=== PATIENT | female | born 1950 | race African-American/Black ===

== ENCOUNTER 2016-06-27 20:54 | Inpatient (IN) | payer MEDICAID ==
[2016-06-27] MEDS ORDERED: NS 0.9% 1000 ML* 1,000 ML IV ONE ×2 (21:23→21:37)
--- NOTE | 2016-06-27 21:34 | ED ---
Naveed Wei Anna, scribed for Abdi Katz MD on 06/27/16 at 2109 . GI/ HPI - HPI Summary HPI Summary: Patient is a 66 y/o female BIBA to [facility] presenting with gradual onset of constant flulike symptoms that began two days ago. EMS reports she experienced one episode of emesis and at least one episode of incontinence earlier today. Her BP upon arrival of EMS was 70/30. It has increased since then and was in the low 90s during transit. Per Ems, her sugar was high. The patient has not been eating or drinking for two days. Her history is significant for DM. - History of Current Complaint Stated Complaint: HIGH BLOOD SUGAR - Allergy/Home Medications Allergies/Adverse Reactions: Allergies Allergy/AdvReac Type Severity Reaction Status Date / Time BLAYNE Inhibitors Allergy Severe Swelling Verified 06/27/16 22:47 Of Face,Lips,& Throat PMH/Surg Hx/FS Hx/Imm Hx Endocrine/Hematology History: Reports: Hx Diabetes Cardiovascular History: Reports: Hx Hypercholesterolemia, Hx Hypertension Respiratory History: Reports: Hx Asthma, Other Respiratory Problems/Disorders - COPD Sensory History: Denies: Hx Contacts or Glasses Opthamlomology History: Denies: Hx Contacts or Glasses - Surgical History Surgery Procedure, Year, and Place: ovarian mass excision Infectious Disease History: Denies: Traveled Outside the [place] in Last 30 Days - Family History Known Family History: Positive: Diabetes - Social History Alcohol Use: Daily Alcohol Amount: 1 glass per night Substance Use Type: Reports: None Smoking Status (MU): Never Smoked Tobacco Review of Systems Positive: Vomiting Positive: incontinence All Other Systems Reviewed And Are Negative: Yes Physical Exam Triage Information Reviewed: Yes Vital Signs On Initial Exam: Initial Vitals Temp Pulse Resp BP Pulse Ox 97.6 F 75 17 103/66 100 06/27/16 21:05 06/27/16 21:05 06/27/16 21:05 06/27/16 21:05 06/27/16 21:05 Vital Signs Reviewed: Yes Appearance: Positive: No Pain Distress, Ill-Appearing, Obese Skin: Positive: Warm, Dry Eyes: Positive: OSIRIS ENT: Positive: Hearing grossly normal Neck: Positive: Supple Respiratory/Lung Sounds: Positive: Clear to Auscultation, Breath Sounds Present Cardiovascular: Positive: RRR Abdomen Description: Positive: Nontender, Soft Bowel Sounds: Positive: Present Musculoskeletal: Positive: Strength/ROM Intact Neurological: Positive: Sensory/Motor Intact Diagnostics - Vital Signs Vital Signs Temp Pulse Resp BP Pulse Ox 06/27/16 21:20 95 17 103/66 82 06/27/16 21:19 19 06/27/16 21:05 97.6 F 75 17 103/66 100 - Laboratory Result Diagrams: 06/27/16 21:25 06/27/16 21:25 Lab Statement: Any lab studies that have been ordered have been reviewed, and results considered in the medical decision making process. - EKG 2152 Cardiac Rate: NL - 71 bpm EKG Rhythm: Sinus Rhythm EKG Interpretation: Nonspecific T abnormalities GIGU Course/Dx - Course Assessment/Plan: Patient is a 66 y/o female BIBA to [facility] presenting with gradual onset of constant flulike symptoms that began two days ago. Labs reveal carbon dioxide level of 11, lactic acid level of 6, and C-reactive protein level of 17.78. Arterial blood pH was 7.17. Hx of diabetes. Discussed patient care with Dr. Marie, who accepts the pt for admission. Pt and family are agreeable with this plan. - Diagnoses Provider Diagnoses: DKA (diabetic ketoacidoses) - Physician Notifications Discussed Care Of Patient With: Dr. Marie (hospitalist) at 22:10. Agrees to accept patient. Instructed by Provider To: Admit As Inpatient - Critical Care Time Critical Care Time: 30-74 min Discharge - Discharge Plan Condition: Fair Disposition: ADMITTED TO [facility] The documentation as recorded by the Naveed arias Anna accurately reflects the service I personally performed and the decisions made by , Abdi Katz MD.
[2016-06-27 21:42] LABS: Hematocrit 43 % (35-47); Hemoglobin 14.1 g/dl (12.0-16.0); Mean Corpuscular HGB Conc 33 g/dl (31-36); Mean Corpuscular Hemoglobin 30 pg (27-31); Mean Corpuscular Volume 93 fL (80-97); Mean Platelet Volume 11 um3 (7.4-10.4); Red Blood Count 4.64 10^6/ul (4.0-5.4); Red Cell Distribution Width 15 % (10.5-15); White Blood Count 9.9 10^3/ul (3.5-10.8)
[2016-06-27 21:54] LABS: Albumin 3.8 g/dL (3.2-5.2); BUN/Creatinine Ratio 17.4 (8-20); C Reactive Protein 17.78 mg/L (< 5.00); Calcium 8.6 mg/dL (8.6-10.3); EGFR African American 12.9 (>60); Globulin 4.3 g/dL (2-4); Potassium 3.5 mmol/L (3.5-5.0); Total Bilirubin 0.6 mg/dL (0.2-1.0); Total Protein 8.1 g/dL (6.4-8.9)
[2016-06-27] MEDS ORDERED: Insulin REGULAR(*) 1 UNITS UNIT IV ONE (21:59)
[2016-06-27] MEDS ORDERED: Insulin REGULAR(*) 100 UNITS in NS 0.9% 100 ML* 100 ML IVPB ONE (21:59)
[2016-06-27 23:14] LABS: PCO2 Arterial 23 mmHg (35-45)
[2016-06-27 23:46] LABS: Magnesium 3.1 mg/dL (1.9-2.7)
[2016-06-28] MEDS ORDERED: Albuterol HFA INHALER* 8 gm MDI INH PRN (00:34)
[2016-06-28] MEDS ORDERED: Insulin REGULAR(*) 100 UNITS in NS 0.9% 100 ML* 100 ML IV SCH ×4 (01:00→17:00)
[2016-06-28] MEDS ORDERED: NS 0.9% w/ 20 Meq KCL 1000 ML* 1,000 ML IV SCH (01:00)
[2016-06-28 02:06] LABS: BUN/Creatinine Ratio 18.3 (8-20); Blood Urea Nitrogen 78 mg/dL (6-24); Calcium 8.5 mg/dL (8.6-10.3); Chloride 93 mmol/L (101-111); EGFR African American 13.5 (>60); EGFR Non-African American 10.5 (>60); Sodium 130 mmol/L (133-145)
[2016-06-28 02:09] LABS: CO2 Carbon Dioxide 11 mmol/L (22-32)
[2016-06-28 02:10] LABS: Glucose 653 mg/dL (70-100)
[2016-06-28] MEDS ORDERED: NS 0.9% w/ 40 Meq KCL 1000 ML* 1,000 ML IV SCH (03:00)
[2016-06-28 06:25] LABS: BUN/Creatinine Ratio 19.9 (8-20); Calcium 8.4 mg/dL (8.6-10.3); EGFR African American 15.8 (>60); EGFR Non-African American 12.3 (>60); Potassium 3.3 mmol/L (3.5-5.0)
[2016-06-28 06:38] LABS: Budding Yeast Present (Absent); Urine Bacteria 1+ (Absent); Urine Bilirubin Negative (Negative); Urine Glucose 3+(>=500 mg/dL) (Negative); Urine Nitrite Negative (Negative)
[2016-06-28] MEDS: D5W 1/2 NS 40 Meq KCL 1000 ML* 1,000 ML IV SCH ×2 (07:05→11:41)
--- NOTE | 2016-06-28 08:48 | HP ---
HISTORY AND PHYSICAL: DATE OF ADMISSION: 06/27/16 CHIEF COMPLAINT: Weakness and lethargy. HISTORY OF PRESENT ILLNESS: The patient is a 66-year-old woman who apparently has had diarrhea for several days. She states this started a day or two before that. She also notes that her doctor instructed her to stop taking her diabetic medications because she was under control. It is unclear for the patient because she is lethargic how long this has been. She also had some nausea and vomiting. She had no chest pain and no shortness of breath. The patient was brought in because of increased weakness and lethargy. In the ED, the patient was evaluated and found to be acidotic with combined lactic acidosis and diabetic ketoacidosis. She also was found to be significantly hyperglycemic with a blood sugar of 818. PAST MEDICAL HISTORY: Significant for type 2 diabetes, heart failure, atrial fibrillation, COPD, SVT and hypertension. PAST SURGICAL HISTORY: Significant for ovarian mass excision. ALLERGIES/ADVERSE REACTION: BLAYNE INHIBITORS with angioedema. FAMILY HISTORY: Mother had a CVA. Father of old age. SOCIAL HISTORY: No tobacco, no alcohol, no recreational drug use. She is not working. She is a . She has 8 children. Her healthcare proxy is her son Maximiliano. CURRENT MEDICATIONS: 1. Advair Diskus 1 puff twice daily. 2. Flovent Diskus 250 one puff twice daily. 3. Atenolol/chlorthalidone 50/25 one tablet daily. 4. Albuterol 2 puffs every 6 hours as needed. 5. Amlodipine 10 mg daily. 6. Xarelto 15 mg daily. 7. MiraLAX 17 g daily. 8. Aspirin 81 mg daily. REVIEW OF SYSTEMS: A 14-point review of systems was completed with the patient as best as could be possible with her lethargy. All pertinent positives and negatives are in the history of present illness otherwise is negative. PHYSICAL EXAMINATION GENERAL: A pleasant woman, lying in bed, in no acute distress. VITAL SIGNS: Her heart rate is 71 beats per minute, respiratory rate 17 breaths per minute, pulse oxygenation 98%, blood pressure 92/62, temperature 97.8 degrees. HEENT: Normocephalic, atraumatic. Exophthalmos. NECK: Supple. No JVD, bruits, palpable thyroid. CHEST: Diminished breath sounds, but clear to auscultation. CARDIOVASCULAR: S1, S2 appreciated. ABDOMEN: Positive bowel sounds in all 4 quadrants. Soft, nontender, nondistended. EXTREMITIES: No cyanosis, clubbing. She has got bilateral edema. NEURO: Alert and oriented x3 when awoken. Moves all extremities. SKIN: No distinct rashes. LABORATORY DATA: Sodium 130, potassium 3.5, chloride 87, CO2 11, BUN 77, creatinine 4.43, glucose is 818. Her white count is 9.9, hemoglobin 14.1, hematocrit 43, platelets 198. ABG; pH 7.17, pCO2 23, pO2 95. ASSESSMENT AND PLAN: 1. Diabetic ketoacidosis likely from diarrhea and volume depletion associated with her acute kidney injury. We will aggressively rehydrate the patient with normal saline with 40 mEq of K, check BMPs every 4 hours, place her on insulin drip. Fingersticks q.1 hour. After glucose drops below 200, we will change to D5 half- normal saline with 20 of K and halve the dosage of the insulin drip. 2. Acute kidney injury. I suspect this will improve dramatically with IV hydration and we will monitor. 3. Hypertension. Actually somewhat hypotensive. Continue medications, but hold if hypotensive. 4. Atrial fibrillation. Heart rate seems adequately controlled. Continue Xarelto. 5. Chronic obstructive pulmonary disease. Stable. Continue current regimen. 6. FEN: NPO. 7. DVT prophylaxis. She is on Xarelto. 8. The patient is a full code. TIME SPENT: Over 75 minutes was spent on this H and P, more than 40 minutes was spent in direct [id number] contact with the patient in evaluation, physical exam, counseling, and coordination of care. CC: Toyin Baron MD * [id number]/[facility] [place]: [id number] MTDD
[2016-06-28] MEDS ORDERED: Chlorthalidone TAB* 50 MG PO SCH (09:00)
[2016-06-28] MEDS ORDERED: amLODIPine TAB* 5 MG PO SCH (09:00)
[2016-06-28] MEDS ORDERED: Fluticasone DISKUS 250 MCG(NF) 1 PUFF DISKUS INH SCH (09:00)
[2016-06-28] MEDS ORDERED: Atenolol TAB* 50 MG PO SCH (09:00)
[2016-06-28] MEDS ORDERED: Rivaroxaban TAB(*) 15 MG PO SCH (09:00)
[2016-06-28 10:25] LABS: BUN/Creatinine Ratio 20.2 (8-20); Blood Urea Nitrogen 71 mg/dL (6-24); CO2 Carbon Dioxide 17 mmol/L (22-32); Calcium 8.3 mg/dL (8.6-10.3); Chloride 108 mmol/L (101-111); EGFR African American 16.9 (>60); EGFR Non-African American 13.1 (>60); Glucose 286 mg/dL (70-100); Sodium 139 mmol/L (133-145)
--- NOTE | 2016-06-28 10:38 | PN ---
Subjective Date of Service: 06/28/16 Interval History: Remains lethargic but easy to arouse and is AOx3 Has no complaints Objective Active Medications: Albuterol (Ventolin Hfa Inhaler*) 2 puff INH Q6H PRN PRN Reason: SOB/WHEEZING Aspirin (Aspirin Ec Low Dose*) 81 mg PO DAILY [facility] Potassium Chloride/Sodium Chloride (Ns 0.9% W/ 40 Meq Kcl 1000 Ml*) 1,000 mls @ 250 mls/hr IV PER RATE [facility] Last Admin: 06/28/16 03:30 Dose: 250 mls/hr Potassium Chloride/Dextrose (D5w 1/2 Ns 40 Meq Kcl 1000 Ml*) 1,000 mls @ 200 mls/hr IV PER RATE [facility] Last Admin: 06/28/16 07:05 Dose: 200 mls/hr Insulin Human Regular 100 (units/ Sodium Chloride) 100 mls @ 5.99 mls/hr IV .( INITIAL RATE) [facility] PRN Reason: 0.05 UNITS/KG/HR Lactated Ringer's (Lactated Ringers 1000 Ml Bag*) 1,000 mls @ 200 mls/hr IV PER RATE [facility] Stop: 06/29/16 15:59 Mometasone Furoate/Formoterol Fumar (Dulera 200/5 Mdi*) 2 puff INH BID [facility] Vital Signs 06/27/16 06/28/16 06/28/16 23:30 00:00 00:01 Temperature Pulse Rate 73 73 73 Respiratory 18 17 17 Rate Blood Pressure 99/51 108/74 (mmHg) O2 Sat by Pulse 99 99 99 Oximetry 06/28/16 06/28/16 06/28/16 00:30 01:00 01:19 Temperature Pulse Rate 72 77 Respiratory 17 20 19 Rate Blood Pressure 119/67 112/82 (mmHg) O2 Sat by Pulse 97 96 Oximetry 06/28/16 06/28/16 06/28/16 01:20 01:30 02:00 Temperature 97.6 F Pulse Rate 72 84 Respiratory 18 17 20 Rate Blood Pressure 99/46 108/72 (mmHg) O2 Sat by Pulse 100 99 Oximetry 06/28/16 06/28/16 06/28/16 03:00 03:03 03:30 Temperature Pulse Rate 74 70 Respiratory 18 13 12 Rate Blood Pressure 116/81 (mmHg) O2 Sat by Pulse 98 98 Oximetry 06/28/16 06/28/16 06/28/16 03:33 04:00 04:30 Temperature 97.1 F 97.6 F Pulse Rate 70 74 Respiratory 24 14 Rate Blood Pressure 110/73 93/66 (mmHg) O2 Sat by Pulse 98 99 Oximetry 06/28/16 06/28/16 06/28/16 05:00 05:30 06:00 Temperature 98.4 F 98.6 F 98.8 F Pulse Rate 73 73 81 Respiratory 15 18 11 Rate Blood Pressure 113/80 111/66 100/66 (mmHg) O2 Sat by Pulse 97 96 97 Oximetry 06/28/16 06/28/16 06/28/16 06:30 07:00 07:30 Temperature 98.7 F 98.7 F 98.8 F Pulse Rate 77 74 75 Respiratory 11 11 14 Rate Blood Pressure 110/70 92/66 99/59 (mmHg) O2 Sat by Pulse 99 99 97 Oximetry 06/28/16 06/28/16 06/28/16 07:43 08:00 09:00 Temperature 98.8 F 98.9 F Pulse Rate 71 70 Respiratory 15 16 15 Rate Blood Pressure 96/68 105/69 (mmHg) O2 Sat by Pulse 98 98 Oximetry 06/28/16 10:00 Temperature 98.9 F Pulse Rate 72 Respiratory 10 Rate Blood Pressure (mmHg) O2 Sat by Pulse 99 Oximetry Oxygen Devices in Use Now: Nasal Cannula Appearance: lying on side, NAD Ears/Nose/Mouth/Throat: Clear Oropharnyx, - - dry MM Respiratory: Symmetrical Chest Expansion and Respiratory Effort, Clear to Auscultation Cardiovascular: NL Sounds; No Murmurs; No JVD, RRR Abdominal: NL Sounds; No Tenderness; No Distention, No Hepatosplenomegaly Skin: No Rash or Ulcers Neurological: Alert and Oriented x 3, - - falls asleep quickly after talking Lines/Tubes/Other Access: Clean, Dry and Intact Limon Result Diagrams: 06/27/16 21:25 06/28/16 10:00 Microbiology and Other Data: Microbiology 06/28/16 01:40 Nasal Screen MRSA (PCR)(MILES) - Final Nasal Mrsa Negative Assess/Plan/Problems-Billing Assessment: 66 yo F h/o DM2, CHF, afib on xarelto, COPD, and HTN presents with increasing lethargy after several days of diarrhea found with DKA - Patient Problems (1) DKA (diabetic ketoacidoses) Comment: Reportedly stopped home medications. Pt does not confirm this AM Intercurrent diarrhea Continue insulin gtt until AG is closed and patient able top tolerate PO food c/w D51/2 NS with 40meq K 2 additional liter LR now BMP q4hrs - nect pending now (2) Atrial fibrillation Comment: Currently NSR D/c xarelto in setting of GERALD Will not start heparin unless reverts to afib (3) Acute kidney failure Comment: In setting of volume depletion from DKA c/w 1/2 NS and 2 additional liter LR now trend UOP Maintain limon (4) Hypertension Comment: Hold atenolol and chlorthalidone (5) COPD (chronic obstructive pulmonary disease) Comment: dulera and albuterol PRN (6) DVT prophylaxis Comment: hep SQ
[2016-06-28] MEDS: Mometasone/Formoter 200/5 MDI INH SCH ×2 (11:43→21:09)
[2016-06-28] MEDS: Heparin VIAL(*) 5000 UNITS/ML VIAL (FIVE THOUSAND) SUBCUT SCH ×2 (13:56→22:31)
[2016-06-28] MEDS: Aspirin EC Low Dose* 81 MG TAB.EC PO SCH (13:56)
[2016-06-28 14:29] LABS: BUN/Creatinine Ratio 20.2 (8-20); EGFR African American 19.3 (>60); Potassium 3.4 mmol/L (3.5-5.0)
[2016-06-28] MEDS ORDERED: Dextrose 50% Syringe 50 ML* 25 GM/50 ML SYRINGE IV PUSH PRN ×3 (15:54→23:25)
[2016-06-28] MEDS ORDERED: Insulin GLARGINE(*) 1 UNITS UNIT SUBCUT SCH (16:00)
[2016-06-28] MEDS ORDERED: Insulin GLARGINE(*) 1 UNITS UNIT ONE (16:18)
[2016-06-28] MEDS: Insulin LISPRO* 1 UNITS UNIT SUBCUT SCH ×2 (16:20→22:28)
[2016-06-28] MEDS ORDERED: D5W 1/2 NS 40 Meq KCL 1000 ML* 1,000 ML IV SCH (17:00)
[2016-06-28] MEDS ORDERED: Insulin LISPRO* 1 UNITS UNIT SUBCUT ONE ×2 (22:23→23:25)
[2016-06-29] MEDS ORDERED: Dextrose 50% Syringe 50 ML* 25 GM/50 ML SYRINGE IV PUSH PRN ×2 (00:17→09:36)
[2016-06-29] MEDS ORDERED: Insulin LISPRO* 1 UNITS UNIT SUBCUT ONE (00:17)
[2016-06-29 00:58] LABS: BUN/Creatinine Ratio 19.4 (8-20); Calcium 8.5 mg/dL (8.6-10.3); EGFR African American 21.5 (>60); EGFR Non-African American 16.7 (>60); Potassium 3.2 mmol/L (3.5-5.0)
--- NOTE | 2016-06-29 01:09 | PN ---
Progress Note - Progress Note Note: Paged for persistent hyperglycemia, not responding well to Lispro SQ and IVFs, repeat BMP showed patient back in DKA with anion gap acidosis. LR with 20 KCL and Insulin drip resumed.
[2016-06-29] MEDS ORDERED: Insulin REGULAR(*) 100 UNITS in NS 0.9% 100 ML* 100 ML IVPB SCH ×2 (02:00→10:30)
[2016-06-29 03:29] LABS: BUN/Creatinine Ratio 18.4 (8-20); Calcium 8.3 mg/dL (8.6-10.3); EGFR African American 24.3 (>60); EGFR Non-African American 18.9 (>60); Potassium 3.1 mmol/L (3.5-5.0)
[2016-06-29] MEDS: D5W 1/2 NS KCl 20 Meq 1000 ML* 1,000 ML IV SCH ×2 (03:42→08:14)
[2016-06-29] MEDS ORDERED: Adenosine* 3 MG/ML VIAL IV PUSH ONE ×2 (05:05→23:19)
[2016-06-29] MEDS ORDERED: Adenosine* 3 MG/ML VIAL ONE ×3 (05:06→23:20)
[2016-06-29 05:25] LABS: Magnesium 2.6 mg/dL (1.9-2.7)
[2016-06-29] MEDS: KCL 10 MEQ/50 ML IVPREMIX* 10 MEQ/50 ML BAG IV SCH ×2 (05:37→08:18)
[2016-06-29] MEDS: Heparin VIAL(*) 5000 UNITS/ML VIAL (FIVE THOUSAND) SUBCUT SCH ×3 (05:37→21:27)
[2016-06-29 06:04] LABS: Hematocrit 31 % (35-47); Hemoglobin 10.5 g/dl (12.0-16.0); Mean Corpuscular HGB Conc 34 g/dl (31-36); Mean Corpuscular Hemoglobin 31 pg (27-31); Mean Corpuscular Volume 89 fL (80-97); Mean Platelet Volume 11 um3 (7.4-10.4); Red Blood Count 3.43 10^6/ul (4.0-5.4); Red Cell Distribution Width 15 % (10.5-15)
[2016-06-29 06:21] LABS: BUN/Creatinine Ratio 20.3 (8-20); Blood Urea Nitrogen 45 mg/dL (6-24); CO2 Carbon Dioxide 18 mmol/L (22-32); Chloride 111 mmol/L (101-111); EGFR African American 28.6 (>60); EGFR Non-African American 22.2 (>60); Glucose 105 mg/dL (70-100); Magnesium 2.3 mg/dL (1.9-2.7); Sodium 137 mmol/L (133-145)
[2016-06-29] MEDS ORDERED: Adenosine* 3 MG/ML VIAL IV PUSH PRN (07:23)
[2016-06-29] MEDS: Insulin LISPRO* 1 UNITS UNIT SUBCUT SCH ×7 (08:09→21:34)
[2016-06-29] MEDS: Mometasone/Formoter 200/5 MDI INH SCH ×2 (08:59→21:33)
[2016-06-29] MEDS ORDERED: Insulin GLARGINE(*) 1 UNITS UNIT SUBCUT SCH (10:00)
[2016-06-29] MEDS ORDERED: Potassium Chlor TAB* 20 MEQ TAB.ER PO ONE (10:03)
[2016-06-29] MEDS ORDERED: Insulin GLARGINE(*) 1 UNITS UNIT ONE (10:37)
[2016-06-29] MEDS: Atenolol TAB* 25 MG PO SCH ×2 (10:44→20:19)
[2016-06-29] MEDS: Aspirin EC Low Dose* 81 MG TAB.EC PO SCH (10:44)
[2016-06-29] MEDS ORDERED: D5W 1/2 NS KCl 20 Meq 1000 ML* 1,000 ML IV SCH (10:45)
[2016-06-29] MEDS ORDERED: Insulin LISPRO* 1 UNITS UNIT SUBCUT SCH ×2 (11:30)
[2016-06-29 14:57] LABS: Hematocrit 32 % (35-47); Hemoglobin 10.6 g/dl (12.0-16.0); Mean Corpuscular HGB Conc 34 g/dl (31-36); Mean Corpuscular Hemoglobin 30 pg (27-31); Mean Corpuscular Volume 89 fL (80-97); Mean Platelet Volume 10 um3 (7.4-10.4); Red Blood Count 3.54 10^6/ul (4.0-5.4); Red Cell Distribution Width 15 % (10.5-15); White Blood Count 6.5 10^3/ul (3.5-10.8)
[2016-06-29 14:58] LABS: Add Diff/Slide Review? Slide Review Added; Comments Flag Yes
[2016-06-29 15:17] LABS: BUN/Creatinine Ratio 16.4 (8-20); Calcium 8.6 mg/dL (8.6-10.3); EGFR African American 28.2 (>60); EGFR Non-African American 21.9 (>60); Potassium 3.6 mmol/L (3.5-5.0)
--- NOTE | 2016-06-29 18:28 | PN ---
Subjective Date of Service: 06/29/16 Interval History: Events from overnight reviewed AG opened and started back on insulin gtt with improvement and transition back to lantus this AM SVT to 160s o/n broke with adenosine Pt this AM without any complaint. Good appetite, no cough, no SOB Objective Active Medications: Albuterol (Ventolin Hfa Inhaler*) 2 puff INH Q6H PRN PRN Reason: SOB/WHEEZING Aspirin (Aspirin Ec Low Dose*) 81 mg PO DAILY [facility] Last Admin: 06/29/16 10:44 Dose: 81 mg Atenolol (Tenormin Tab*) 25 mg PO BID [facility] Last Admin: 06/29/16 10:44 Dose: 25 mg Dextrose (D50w Syringe 50 Ml*) 12.5 gm IV PUSH .FOR FS < 60 - SS PRN PRN Reason: FS < 60 Heparin Sodium (Porcine) (Heparin Vial(*)) 5,000 units SUBCUT Q8HR [facility] Last Admin: 06/29/16 13:19 Dose: 5,000 units Lactated Ringer's (Lactated Ringers 1000 Ml Bag*) 1,000 mls @ 100 mls/hr IV 1145 ONE Stop: 06/29/16 21:44 Last Admin: 06/29/16 11:56 Dose: 100 mls/hr Insulin Glargine (Lantus(*)) 50 units SUBCUT Q24H [facility] Last Admin: 06/29/16 10:45 Dose: 50 units Insulin Human Lispro (Humalog*) 0 units SUBCUT FS ACHS ICU [facility] PRN Reason: Protocol Last Admin: 06/29/16 14:21 Dose: 2 units Insulin Human Lispro (Humalog*) 0 units SUBCUT FS ACHS ICU [facility] PRN Reason: Protocol Last Admin: 06/29/16 13:19 Dose: 6 units Mometasone Furoate/Formoterol Fumar (Dulera 200/5 Mdi*) 2 puff INH BID [facility] Last Admin: 06/29/16 08:59 Dose: 2 puff Vital Signs 06/28/16 06/28/16 06/28/16 19:00 19:53 20:00 Temperature 99.4 F 98.6 F 99.5 F Pulse Rate 69 73 Respiratory 12 11 Rate Blood Pressure 113/68 128/74 (mmHg) O2 Sat by Pulse 100 100 Oximetry 06/28/16 06/28/16 06/28/16 21:00 21:10 22:00 Temperature 99.5 F 99.5 F Pulse Rate 70 67 71 Respiratory 18 12 12 Rate Blood Pressure 122/77 98/64 (mmHg) O2 Sat by Pulse 98 100 98 Oximetry 06/28/16 06/28/16 06/28/16 23:00 23:40 23:42 Temperature 99.6 F 99.6 F Pulse Rate 67 66 Respiratory 16 17 18 Rate Blood Pressure 101/56 (mmHg) O2 Sat by Pulse 98 97 Oximetry 06/29/16 06/29/16 06/29/16 00:00 00:01 01:00 Temperature 99.7 F 99.7 F 99.5 F Pulse Rate 68 68 70 Respiratory 17 16 16 Rate Blood Pressure 122/70 114/63 (mmHg) O2 Sat by Pulse 97 97 98 Oximetry 06/29/16 06/29/16 06/29/16 01:52 02:00 03:00 Temperature 99.3 F 99.3 F Pulse Rate 71 72 Respiratory 18 19 15 Rate Blood Pressure 115/68 105/62 (mmHg) O2 Sat by Pulse 96 97 Oximetry 06/29/16 06/29/16 06/29/16 03:48 03:56 04:00 Temperature 99.1 F 99.3 F Pulse Rate 71 Respiratory 19 15 Rate Blood Pressure 104/61 (mmHg) O2 Sat by Pulse 97 Oximetry 06/29/16 06/29/16 06/29/16 05:00 05:06 05:45 Temperature 99.2 F 99.2 F 99.2 F Pulse Rate 73 169 73 Respiratory 15 15 18 Rate Blood Pressure 107/62 80/60 116/65 (mmHg) O2 Sat by Pulse 97 97 95 Oximetry 06/29/16 06/29/16 06/29/16 05:50 06:00 07:00 Temperature 99.2 F 99.1 F Pulse Rate 73 75 Respiratory 12 19 18 Rate Blood Pressure 109/71 119/66 (mmHg) O2 Sat by Pulse 97 98 Oximetry 06/29/16 06/29/16 06/29/16 07:26 07:30 07:58 Temperature 99.1 F 99.2 F 99.1 F Pulse Rate 160 85 Respiratory 18 16 Rate Blood Pressure 89/73 114/72 (mmHg) O2 Sat by Pulse 97 99 Oximetry 06/29/16 06/29/16 06/29/16 08:00 09:00 10:00 Temperature 99.0 F 98.8 F 98.9 F Pulse Rate 75 67 67 Respiratory 17 17 17 Rate Blood Pressure 121/88 118/63 96/62 (mmHg) O2 Sat by Pulse 97 96 97 Oximetry 06/29/16 06/29/16 06/29/16 11:00 11:54 12:00 Temperature 99.0 F 99.2 F 99.3 F Pulse Rate 70 68 Respiratory 16 15 Rate Blood Pressure 98/62 107/91 (mmHg) O2 Sat by Pulse 99 98 Oximetry 06/29/16 06/29/16 06/29/16 13:00 14:00 15:00 Temperature 99.2 F 99.3 F 99.5 F Pulse Rate 66 69 68 Respiratory 19 18 17 Rate Blood Pressure 119/65 112/71 111/64 (mmHg) O2 Sat by Pulse 96 98 98 Oximetry 06/29/16 06/29/16 16:00 17:00 Temperature 99.5 F 99.5 F Pulse Rate 67 66 Respiratory 18 21 Rate Blood Pressure 109/67 115/69 (mmHg) O2 Sat by Pulse 98 96 Oximetry Oxygen Devices in Use Now: Nasal Cannula Appearance: NAD Eyes: No Scleral Icterus, PERRLA Ears/Nose/Mouth/Throat: Clear Oropharnyx, Mucous Membranes Moist Neck: NL Appearance and Movements; NL JVP, Trachea Midline Respiratory: Symmetrical Chest Expansion and Respiratory Effort, Clear to Auscultation Cardiovascular: RRR Abdominal: NL Sounds; No Tenderness; No Distention, No Hepatosplenomegaly Lymphatic: No Cervical Adenopathy Extremities: No Edema Neurological: Alert and Oriented x 3 Result Diagrams: 06/29/16 14:45 06/29/16 14:45 Microbiology and Other Data: Microbiology 06/28/16 01:40 Nasal Screen MRSA (PCR)(MILES) - Final Nasal Mrsa Negative Assess/Plan/Problems-Billing Assessment: 66 yo F h/o DM2, CHF, afib on xarelto, COPD, and HTN presents with increasing lethargy after several days of diarrhea found with DKA - Patient Problems (1) DKA (diabetic ketoacidoses) Comment: Basal bolus insulin with sliding scale and carb counting 2 additional liter LR today Hba1c indicates uncontrolled dm2. Will need insulin on d/c (2) Atrial fibrillation Comment: complicated by SVT overnight restarted atenolol D/c xarelto in setting of GERALD Will not start heparin unless reverts to afib or persistent atrial arrhythmias (3) Acute kidney failure Comment: In setting of volume depletion from DKA maintain limon LR as above (4) Hypertension Comment: Hold chlorthalidone c/w atenolol (5) COPD (chronic obstructive pulmonary disease) Comment: dulera and albuterol PRN (6) DVT prophylaxis Comment: hep SQ
[2016-06-29] MEDS ORDERED: Metoprolol Tartrate IV* 1 MG/ML 5 ML VIAL ONE (22:55)
[2016-06-29] MEDS ORDERED: Metoprolol Tartrate IV* 1 MG/ML 5 ML VIAL IV PRN (22:55)
[2016-06-29] MEDS ORDERED: Diltiazem IV* 5 MG/ML 5 ML VIAL (for loading dose/IV Push) (25 MG) IV SLOW PU ONE (23:28)
[2016-06-29] MEDS ORDERED: Diltiazem IV VIAL* 125 MG/25 ML VIAL ONE (23:34)
[2016-06-29 23:48] LABS: BUN/Creatinine Ratio 15.6 (8-20); Calcium 8.5 mg/dL (8.6-10.3); EGFR African American 30.3 (>60); EGFR Non-African American 23.6 (>60); Magnesium 2.2 mg/dL (1.9-2.7); Potassium 3.2 mmol/L (3.5-5.0)
--- NOTE | 2016-06-29 23:56 | PN ---
Progress Note - Progress Note Note: Paged for SVT - Patient received lopressor 5 mg IV - minimal response, adenosine 6 mg, minimal response, diltiazem 20 mg IV - now down in 130's Sinus Tach. She does dip down into the 70-80s. BMP shows hypokalemia. Per RN did not eat any dinner. Will start LR with 20 KCL and IV KCl.
[2016-06-30] MEDS: KCL 20 MEQ/100 ML IVPREMIX* 20 MEQ/100 ML BAG IV SCH ×2 (00:12→02:40)
[2016-06-30 02:19] LABS: TSH (Thyroid Stimulating Horm) 1.33 mcIU/mL (0.34-5.60)
[2016-06-30] MEDS ORDERED: Metoprolol Tartrate IV* 1 MG/ML 5 ML VIAL IV ONE (02:44)
[2016-06-30] MEDS ORDERED: Diltiazem DRIP* 100 MG/100 ML ADDV.BAG IVPB SCH ×3 (04:00→08:25)
[2016-06-30] MEDS ORDERED: Heparin DRIP 25,000 UNITS(*) 25,000 UNITS/500 ML BAG IV SCH (04:15)
[2016-06-30 04:39] LABS: Hematocrit 27 % (35-47); Hemoglobin 9.1 g/dl (12.0-16.0); Mean Corpuscular HGB Conc 34 g/dl (31-36); Mean Corpuscular Hemoglobin 30 pg (27-31); Mean Corpuscular Volume 89 fL (80-97); Mean Platelet Volume 10 um3 (7.4-10.4); Red Blood Count 3.01 10^6/ul (4.0-5.4); Red Cell Distribution Width 15 % (10.5-15); White Blood Count 7.6 10^3/ul (3.5-10.8)
[2016-06-30 04:50] LABS: BUN/Creatinine Ratio 14.6 (8-20); Calcium 8.5 mg/dL (8.6-10.3); EGFR African American 35.3 (>60); EGFR Non-African American 27.4 (>60); Potassium 5.1 mmol/L (3.5-5.0)
[2016-06-30] MEDS ORDERED: Heparin VIAL(*) 5000 UNITS/ML VIAL (FIVE THOUSAND) IV SCH (05:00)
[2016-06-30] MEDS ORDERED: Insulin LISPRO* 1 UNITS UNIT SUBCUT ONE (06:00)
[2016-06-30] MEDS: Atenolol TAB* 25 MG PO SCH ×2 (08:56→20:58)
[2016-06-30] MEDS: Aspirin EC Low Dose* 81 MG TAB.EC PO SCH (08:56)
[2016-06-30] MEDS: Mometasone/Formoter 200/5 MDI INH SCH ×2 (09:58→20:50)
[2016-06-30] MEDS: Insulin GLARGINE(*) 1 UNITS UNIT SUBCUT SCH (11:02)
[2016-06-30] MEDS ORDERED: Insulin LISPRO* 1 UNITS UNIT SUBCUT SCH (12:00)
--- NOTE | 2016-06-30 13:33 | RAD ---
INDICATION: Fever, evaluate for pneumonia. COMPARISON: Comparison is made with a prior chest x-ray study from September 22, 2013. TECHNIQUE: AP and lateral views of the chest were obtained. FINDINGS: The heart is within normal limits in size. Mediastinal and hilar contours appear within normal limits. The lungs are underinflated and clear. No pleural effusion is seen. IMPRESSION: NO EVIDENCE FOR ACUTE DISEASE.
[2016-06-30 14:45] LABS: Hematocrit 32 % (35-47); Hemoglobin 10.9 g/dl (12.0-16.0)
--- NOTE | 2016-06-30 14:55 | PN ---
Subjective Date of Service: 06/30/16 Interval History: Events from overnight reviewed. SVT overnight to 160. Received diltiazam bolus, toprol, the put on dilt drip with heparin gtt. HR fluctuating between 160s and 50s. Back in NSR this AM when seen and dilt gtt titrated off. Back into SVT this afternoon which broke to NSR with coughing Pt without other complaints Objective Active Medications: Albuterol (Ventolin Hfa Inhaler*) 2 puff INH Q6H PRN PRN Reason: SOB/WHEEZING Aspirin (Aspirin Ec Low Dose*) 81 mg PO DAILY [facility] Last Admin: 06/30/16 08:56 Dose: 81 mg Atenolol (Tenormin Tab*) 25 mg PO BID [facility] Last Admin: 06/30/16 08:56 Dose: 25 mg Dextrose (D50w Syringe 50 Ml*) 12.5 gm IV PUSH .FOR FS < 60 - SS PRN PRN Reason: FS < 60 Insulin Glargine (Lantus(*)) 60 units SUBCUT Q24H [facility] Last Admin: 06/30/16 11:02 Dose: 60 units Insulin Human Lispro (Humalog*) 0 units SUBCUT Q6HR [facility] PRN Reason: Protocol Last Admin: 06/30/16 11:56 Dose: 9 units Metoprolol Tartrate (Lopressor Iv*) 5 mg IV Q6H PRN PRN Reason: BLOOD PRESSURE Mometasone Furoate/Formoterol Fumar (Dulera 200/5 Mdi*) 2 puff INH BID [facility] Last Admin: 06/30/16 09:58 Dose: 2 puff Rivaroxaban (Xarelto(*)) 15 mg PO 1700 [facility] Vital Signs 06/29/16 06/29/16 06/29/16 15:00 16:00 17:00 Temperature 99.5 F 99.5 F 99.5 F Pulse Rate 68 67 66 Respiratory 17 18 21 Rate Blood Pressure 111/64 109/67 115/69 (mmHg) O2 Sat by Pulse 98 98 96 Oximetry 06/29/16 06/29/16 06/29/16 18:00 18:06 19:00 Temperature 99.6 F Pulse Rate 75 Respiratory 14 22 21 Rate Blood Pressure 123/76 131/106 (mmHg) O2 Sat by Pulse 98 Oximetry 06/29/16 06/29/1606/29/17 20:00 21:00 22:00 Temperature 99.7 F 99.7 F 99.7 F Pulse Rate 73 71 69 Respiratory 21 16 20 Rate Blood Pressure 128/88 127/81 124/68 (mmHg) O2 Sat by Pulse 97 96 96 Oximetry 06/29/16 06/29/16 06/29/16 22:09 23:00 23:28 Temperature 99.7 F 99.7 F 99.8 F Pulse Rate 70 147 139 Respiratory 21 17 18 Rate Blood Pressure 118/79 131/86 (mmHg) O2 Sat by Pulse 95 97 98 Oximetry 06/29/16 06/29/16 06/29/16 23:40 23:44 23:45 Temperature 99.9 F 99.9 F 99.9 F Pulse Rate 146 112 118 Respiratory 19 24 16 Rate Blood Pressure 89/71 91/46 82/53 (mmHg) O2 Sat by Pulse 96 95 95 Oximetry 06/29/16 06/30/16 06/30/16 23:49 00:00 00:01 Temperature 99.9 F 99.8 F 99.8 F Pulse Rate 133 131 133 Respiratory 18 18 20 Rate Blood Pressure 99/63 118/79 (mmHg) O2 Sat by Pulse 94 95 95 Oximetry 06/30/16 06/30/16 06/30/16 00:15 00:30 00:45 Temperature 99.9 F 99.9 F 99.9 F Pulse Rate 111 122 141 Respiratory 20 21 22 Rate Blood Pressure 145/120 96/63 99/68 (mmHg) O2 Sat by Pulse 95 95 94 Oximetry 06/30/16 06/30/16 06/30/16 01:00 01:03 01:15 Temperature 99.9 F 99.9 F 99.9 F Pulse Rate 141 140 140 Respiratory 19 18 17 Rate Blood Pressure 89/49 106/67 88/61 (mmHg) O2 Sat by Pulse 96 96 96 Oximetry 06/30/16 06/30/16 06/30/16 01:19 01:30 01:33 Temperature 99.9 F 99.9 F 99.9 F Pulse Rate 144 111 130 Respiratory 21 18 19 Rate Blood Pressure 93/45 88/65 88/72 (mmHg) O2 Sat by Pulse 96 95 96 Oximetry 06/30/16 06/30/16 06/30/16 01:45 02:00 02:15 Temperature 99.9 F 100.0 F 100.0 F Pulse Rate 107 144 146 Respiratory 15 20 21 Rate Blood Pressure 96/52 100/69 95/60 (mmHg) O2 Sat by Pulse 98 97 96 Oximetry 06/30/16 06/30/16 06/30/16 02:30 02:45 02:49 Temperature 100.0 F 100.0 F 100.0 F Pulse Rate 68 146 146 Respiratory 20 18 21 Rate Blood Pressure 116/86 73/31 78/58 (mmHg) O2 Sat by Pulse 98 97 97 Oximetry 06/30/16 06/30/16 06/30/16 02:56 03:00 03:02 Temperature 100.0 F 100.0 F Pulse Rate 98 147 Respiratory 14 22 Rate Blood Pressure 76/53 81/56 (mmHg) O2 Sat by Pulse 97 97 Oximetry 06/30/16 06/30/16 06/30/16 03:15 03:30 03:45 Temperature 100.0 F 99.9 F 99.9 F Pulse Rate 109 143 89 Respiratory 21 23 19 Rate Blood Pressure 122/70 85/56 73/58 (mmHg) O2 Sat by Pulse 98 97 99 Oximetry 06/30/16 06/30/16 06/30/16 03:48 03:56 03:59 Temperature 99.8 F 99.8 F 99.9 F Pulse Rate 144 145 84 Respiratory 21 20 17 Rate Blood Pressure 72/61 85/71 (mmHg) O2 Sat by Pulse 96 97 97 Oximetry 06/30/16 06/30/16 06/30/16 04:00 04:15 04:30 Temperature 99.8 F 99.9 F Pulse Rate 145 146 Respiratory 18 18 Rate Blood Pressure 98/65 145/85 108/81 (mmHg) O2 Sat by Pulse 98 97 Oximetry 06/30/16 06/30/16 06/30/16 04:45 05:00 05:15 Temperature 99.9 F 99.9 F 100.0 F Pulse Rate 145 129 145 Respiratory 18 16 20 Rate Blood Pressure 89/62 101/83 90/57 (mmHg) O2 Sat by Pulse 96 97 97 Oximetry 06/30/16 06/30/16 06/30/16 05:30 05:33 05:45 Temperature 100.0 F 100.0 F 100.0 F Pulse Rate 147 146 103 Respiratory 16 20 19 Rate Blood Pressure 84/69 96/71 92/69 (mmHg) O2 Sat by Pulse 98 96 96 Oximetry 06/30/16 06/30/16 06/30/16 06:00 06:01 06:15 Temperature 100.0 F 100.0 F 100.1 F Pulse Rate 146 146 144 Respiratory 13 17 19 Rate Blood Pressure 80/65 96/67 89/57 (mmHg) O2 Sat by Pulse 96 96 96 Oximetry 06/30/16 06/30/16 06/30/16 06:30 06:45 07:00 Temperature 100.0 F 100.1 F 100.1 F Pulse Rate 144 135 144 Respiratory 15 16 16 Rate Blood Pressure 95/78 99/72 111/90 (mmHg) O2 Sat by Pulse 96 99 98 Oximetry 06/30/16 06/30/16 06/30/16 07:15 07:45 07:59 Temperature 100.1 F 100.1 F 100.2 F Pulse Rate 65 103 74 Respiratory 15 21 20 Rate Blood Pressure 111/69 104/68 (mmHg) O2 Sat by Pulse 100 99 99 Oximetry 06/30/16 06/30/16 06/30/16 08:00 08:08 08:15 Temperature 100.2 F 100.3 F 100.4 F Pulse Rate 74 77 74 Respiratory 20 14 21 Rate Blood Pressure 74/47 73/48 87/67 (mmHg) O2 Sat by Pulse 98 99 99 Oximetry 06/30/16 06/30/16 06/30/16 08:30 08:45 09:00 Temperature 100.2 F 99.7 F Pulse Rate 66 68 Respiratory 18 18 20 Rate Blood Pressure 97/70 104/70 103/72 (mmHg) O2 Sat by Pulse 97 99 Oximetry 06/30/16 06/30/16 06/30/16 09:15 09:30 09:45 Temperature 99.4 F 99.4 F 99.3 F Pulse Rate 64 67 66 Respiratory 21 20 14 Rate Blood Pressure 104/84 103/73 105/62 (mmHg) O2 Sat by Pulse 97 97 97 Oximetry 06/30/16 06/30/16 06/30/16 10:00 10:15 10:30 Temperature 99.3 F 99.3 F 99.2 F Pulse Rate 64 67 63 Respiratory 15 19 19 Rate Blood Pressure 96/66 98/61 100/65 (mmHg) O2 Sat by Pulse 98 97 96 Oximetry 06/30/16 06/30/16 06/30/16 10:45 11:00 11:15 Temperature 99.2 F 99.2 F 99.3 F Pulse Rate 63 62 61 Respiratory 18 18 19 Rate Blood Pressure 107/74 114/62 101/67 (mmHg) O2 Sat by Pulse 97 95 96 Oximetry 06/30/16 06/30/16 06/30/16 11:30 11:38 11:45 Temperature 99.3 F 99.3 F Pulse Rate 61 65 Respiratory 19 20 17 Rate Blood Pressure 94/60 93/59 (mmHg) O2 Sat by Pulse 97 93 Oximetry 06/30/16 06/30/16 06/30/16 12:00 12:15 12:18 Temperature 99.3 F 99.3 F 99.3 F Pulse Rate 62 61 62 Respiratory 18 21 20 Rate Blood Pressure 91/64 78/48 85/56 (mmHg) O2 Sat by Pulse 96 96 96 Oximetry 06/30/16 06/30/16 06/30/16 12:22 12:30 12:45 Temperature 99.3 F 99.3 F 99.3 F Pulse Rate 63 61 63 Respiratory 20 18 18 Rate Blood Pressure 99/61 106/75 101/72 (mmHg) O2 Sat by Pulse 96 97 96 Oximetry 06/30/16 06/30/16 06/30/16 13:00 13:15 13:30 Temperature 99.4 F 99.4 F 99.4 F Pulse Rate 65 66 58 Respiratory 17 17 20 Rate Blood Pressure 102/71 107/79 (mmHg) O2 Sat by Pulse 98 98 98 Oximetry 06/30/16 06/30/16 06/30/16 13:45 14:00 14:15 Temperature 99.5 F 99.5 F 99.5 F Pulse Rate 70 65 66 Respiratory 18 19 20 Rate Blood Pressure 111/75 (mmHg) O2 Sat by Pulse 98 96 98 Oximetry Oxygen Devices in Use Now: Nasal Cannula Appearance: NAD Eyes: No Scleral Icterus, PERRLA, - - left eye esotropia Ears/Nose/Mouth/Throat: Clear Oropharnyx, Mucous Membranes Moist Neck: NL Appearance and Movements; NL JVP, Trachea Midline Respiratory: Symmetrical Chest Expansion and Respiratory Effort, Clear to Auscultation Cardiovascular: RRR Abdominal: NL Sounds; No Tenderness; No Distention, No Hepatosplenomegaly Lymphatic: No Cervical Adenopathy Extremities: No Edema Neurological: Alert and Oriented x 3 Result Diagrams: 06/30/16 14:00 06/30/16 04:25 Microbiology and Other Data: Microbiology 06/28/16 01:40 Nasal Screen MRSA (PCR)([facility]IL[facility]) - Final Nasal Mrsa Negative Assess/Plan/Problems-Billing Assessment: 66 yo F h/o DM2, CHF, afib on xarelto, COPD, and HTN presents with increasing lethargy after several days of diarrhea found with DKA with stay c/b SVT and bradycarida on AV julianna blockers - Patient Problems (1) DKA (diabetic ketoacidoses) Comment: Basal bolus insulin with sliding scale and carb counting Insulin increased to 60unit 06/30/16 Hba1c indicates uncontrolled dm2. Will need insulin on d/c (2) Atrial fibrillation Comment: complicated by continued SVT and bradycardia while on AV julianna blockers. ?Sick sinus syndrome. Asked cardiology to consult and weigh in on best method for rate or rhythm control. Was previously on amiodarone. Placed Dr. Broussard's last note in chart. Unclear why this was discontinued. c/w atenolol Restart xarelto 25mg. heparin gtt stopped Metoprolol 5mg IV available for uncontrolled rate (3) Acute kidney failure Comment: In setting of volume depletion from DKA d/c limon Baseline per review from outpatient records - Cr 1.8 in 04/2016 (4) Hypertension Comment: Hold chlorthalidone c/w atenolol (5) COPD (chronic obstructive pulmonary disease) Comment: dulera and albuterol PRN (6) DVT prophylaxis Comment: hep SQ
[2016-06-30 14:59] LABS: BUN/Creatinine Ratio 12.7 (8-20); Calcium 8.3 mg/dL (8.6-10.3); EGFR African American 36.2 (>60); EGFR Non-African American 28.1 (>60); Potassium 3.3 mmol/L (3.5-5.0)
[2016-06-30] MEDS: Rivaroxaban TAB(*) 15 MG PO SCH (16:08)
[2016-06-30] MEDS: Insulin LISPRO* 1 UNITS UNIT SUBCUT SCH ×2 (17:15→21:01)
--- NOTE | 2016-06-30 17:58 | CONS ---
CARDIOLOGY CONSULTATION: DATE OF CONSULT: 06/30/16 INDICATION FOR CONSULTATION: Atrial tachycardia, atrial fibrillation. HISTORY OF PRESENT ILLNESS: The patient is a 66-year-old female with a history of diabetes, hypertension, and hyperlipidemia who was admitted to the hospital with diabetic ketoacidosis. The patient was off of her diabetic medications and was admitted to the hospital with ketoacidosis. She was brought to the emergency room and started on fluids in replenishment of her electrolytes. It was noted that she was having runs of atrial tachycardia/SVT/atrial fibrillation while she was in the emergency room. The patient does have a history of atrial arrhythmias. Since the patient has been in the hospital, she has been in and out of normal sinus rhythm and atrial fibrillation. Her atrial rhythm goes up to a heart rate of 190 beats per minute. In speaking with the patient, she has no symptoms associated with this. She denies any episodes of lightheadedness, dizziness, or syncope. The patient was seen by Dr. Lopez at the end of April for this abnormality. There were no medication changes at that time. PAST MEDICAL HISTORY: Significant for: 1. Hypertension. 2. Asthma. 3. Hyperlipidemia. 4. Diabetes. 5. Paroxysmal atrial fibrillation. 6. Chronic kidney disease. PAST SURGICAL HISTORY: 1. Tubal ligation. 2. Colonoscopy in 2000. OUTPATIENT MEDICATIONS: Include: 1. Albuterol inhaler. 2. Amlodipine 10 mg a day. 3. Aspirin 81 mg a day. 4. Atenolol/chlorthalidone 50/25 mg once a day. 5. Lipitor 20 mg a day. 6. Xarelto 15 mg a day. CURRENT MEDICATIONS: 1. Aspirin 81 mg a day. 2. Atenolol 25 mg b.i.d. 3. Insulin as directed. 4. Xarelto 15 mg a day. ALLERGIES: She is intolerant of LISINOPRIL. SOCIAL HISTORY: She denies tobacco or significant alcohol intake. She is not . She is retired. PHYSICAL EXAM: Height is 5 feet 9 inches, weight 288 pounds, temperature 99.7, heart rate 65, respiratory rate is 17, oxygen saturation 96% on 2 L, and blood pressure 120/81. Sclerae anicteric. Oropharynx is pink without erythema. Carotids are 2+ without bruits. JVD is normal. Thyroid is normal. Cardiac Exam: S1, S2 without any murmurs, rubs, or gallops. Lungs have decreased breath sounds. There is no rhonchi or wheezes. Abdomen is obese, soft, nontender, and nondistended with normoactive bowel sounds. Extremities show 2+ edema. She has 2+ pulses throughout. The patient is awake, alert, and oriented. She moves all 4 extremities equally. DIAGNOSTIC STUDIES/LAB DATA: The patient did have an echocardiogram in 2013. At that time, it was a technically limited study due to body habitus. Her ejection fraction was estimated at 50%. There was no obvious valvular abnormalities. IMPRESSION: This is a 66-year-old female who was admitted to the hospital with diabetic ketoacidosis who was noted to have episodes of atrial tachycardia, likely atrial fibrillation with rapid ventricular response. The patient's overall episodes of atrial tachycardia are relatively brief in duration. She seems to tolerate it well. She does not have any significant symptoms associated with it. Overall, her episodes have declined since being in the intensive care unit. For now, my recommendation is to stay on her atenolol. If she continues to have these runs of atrial tachycardia that are symptomatic, then I would consider starting amiodarone and have her follow up with Dr. Lopez as an outpatient. CC: Venkata Washington MD; Dr. Amadeo Lopez, Cardiology at [facility] * [id number]/[facility] #: [id number] [facility]
[2016-07-01] MEDS: Insulin LISPRO* 1 UNITS UNIT SUBCUT SCH ×6 (01:20→21:41)
[2016-07-01 06:55] LABS: Calcium 8.4 mg/dL (8.6-10.3); EGFR African American 35.7 (>60); EGFR Non-African American 27.8 (>60); Potassium 3.1 mmol/L (3.5-5.0)
[2016-07-01] MEDS ORDERED: Potassium Chlor TAB* 20 MEQ TAB.ER PO ONE (07:09)
[2016-07-01] MEDS: Aspirin EC Low Dose* 81 MG TAB.EC PO SCH (07:33)
[2016-07-01] MEDS: Atenolol TAB* 25 MG PO SCH ×2 (07:33→21:40)
[2016-07-01 08:18] LABS: Hematocrit 31 % (35-47); Hemoglobin 10.4 g/dl (12.0-16.0); Mean Corpuscular HGB Conc 33 g/dl (31-36); Mean Corpuscular Hemoglobin 30 pg (27-31); Mean Corpuscular Volume 90 fL (80-97); Mean Platelet Volume 11 um3 (7.4-10.4); Red Blood Count 3.47 10^6/ul (4.0-5.4); Red Cell Distribution Width 15 % (10.5-15)
[2016-07-01 08:19] LABS: Comments Flag Yes
[2016-07-01 08:21] LABS: Add Diff/Slide Review? Slide Review Added
[2016-07-01] MEDS: Mometasone/Formoter 200/5 MDI INH SCH ×2 (08:57→21:43)
[2016-07-01] MEDS: Insulin GLARGINE(*) 1 UNITS UNIT SUBCUT SCH (09:45)
[2016-07-01] MEDS: Rivaroxaban TAB(*) 15 MG PO SCH (17:06)
--- NOTE | 2016-07-01 17:13 | PN ---
Subjective Date of Service: 07/01/16 Interval History: Feels well today no cough, dysuria, CP/SOB Worked with PT and could only walk 20 fts Has tested FS gat home in the past but does need another glucometer Objective Active Medications: Albuterol (Ventolin Hfa Inhaler*) 2 puff INH Q6H PRN PRN Reason: SOB/WHEEZING Aspirin (Aspirin Ec Low Dose*) 81 mg PO DAILY [facility] Last Admin: 07/01/16 07:33 Dose: 81 mg Atenolol (Tenormin Tab*) 25 mg PO BID [facility] Last Admin: 07/01/16 07:33 Dose: 25 mg Dextrose (D50w Syringe 50 Ml*) 12.5 gm IV PUSH .FOR FS < 60 - SS PRN PRN Reason: FS < 60 Sodium Chloride (Ns 0.9% 1000 Ml*) 1,000 mls @ 150 mls/hr IV PER RATE [facility] Stop: 07/01/16 23:54 Insulin Glargine (Lantus(*)) 60 units SUBCUT Q24H [facility] Last Admin: 07/01/16 09:45 Dose: 60 units Insulin Glargine (Lantus(*)) 10 units SUBCUT Q24H [facility] Insulin Human Lispro (Humalog*) 0 units SUBCUT ACHS [facility] PRN Reason: Protocol Last Admin: 07/01/16 17:02 Dose: 9 units Metoprolol Tartrate (Lopressor Iv*) 5 mg IV Q6H PRN PRN Reason: BLOOD PRESSURE Mometasone Furoate/Formoterol Fumar (Dulera 200/5 Mdi*) 2 puff INH BID [facility] Last Admin: 07/01/16 08:57 Dose: 2 puff Rivaroxaban (Xarelto(*)) 15 mg PO 1700 [facility] Last Admin: 07/01/16 17:06 Dose: 15 mg Vital Signs 06/30/16 06/30/16 06/30/16 17:15 17:30 17:45 Temperature Pulse Rate 65 64 63 Respiratory 15 14 14 Rate Blood Pressure (mmHg) O2 Sat by Pulse 97 97 98 Oximetry 06/30/16 06/30/16 06/30/16 18:00 18:15 18:30 Temperature Pulse Rate 65 71 71 Respiratory 19 15 15 Rate Blood Pressure 109/73 (mmHg) O2 Sat by Pulse 98 99 99 Oximetry 06/30/16 06/30/16 06/30/16 18:45 19:00 19:02 Temperature Pulse Rate 72 Respiratory 16 22 19 Rate Blood Pressure 113/80 (mmHg) O2 Sat by Pulse 96 Oximetry 06/30/16 06/30/16 06/30/16 19:15 19:30 19:45 Temperature Pulse Rate 67 65 68 Respiratory 17 22 14 Rate Blood Pressure (mmHg) O2 Sat by Pulse 99 99 99 Oximetry 06/30/16 06/30/16 06/30/16 19:46 20:00 20:11 Temperature 98.9 F Pulse Rate 65 65 Respiratory 19 15 Rate Blood Pressure 128/75 (mmHg) O2 Sat by Pulse 98 100 Oximetry 06/30/16 06/30/16 06/30/16 20:15 20:30 20:45 Temperature Pulse Rate 65 64 62 Respiratory 15 18 17 Rate Blood Pressure (mmHg) O2 Sat by Pulse 100 98 100 Oximetry 06/30/16 06/30/16 06/30/16 21:00 21:15 21:30 Temperature Pulse Rate 64 63 64 Respiratory 16 19 19 Rate Blood Pressure 124/84 (mmHg) O2 Sat by Pulse 100 100 100 Oximetry 06/30/16 06/30/16 06/30/16 21:45 22:00 22:13 Temperature Pulse Rate 63 61 62 Respiratory 17 19 19 Rate Blood Pressure 125/75 (mmHg) O2 Sat by Pulse 100 98 97 Oximetry 06/30/16 06/30/16 06/30/16 22:15 22:30 22:45 Temperature Pulse Rate 62 60 61 Respiratory 19 20 13 Rate Blood Pressure (mmHg) O2 Sat by Pulse 97 96 100 Oximetry 06/30/16 06/30/16 06/30/16 23:00 23:15 23:30 Temperature Pulse Rate 65 63 63 Respiratory 16 13 14 Rate Blood Pressure 143/99 (mmHg) O2 Sat by Pulse 98 95 98 Oximetry 06/30/16 07/01/16 07/01/16 23:45 00:00 00:01 Temperature 98.1 F Pulse Rate 63 61 61 Respiratory 14 19 19 Rate Blood Pressure 90/60 (mmHg) O2 Sat by Pulse 99 97 97 Oximetry 07/01/16 07/01/16 07/01/16 00:15 00:30 00:45 Temperature Pulse Rate 61 60 61 Respiratory 19 18 15 Rate Blood Pressure (mmHg) O2 Sat by Pulse 96 96 98 Oximetry 07/01/16 07/01/16 07/01/16 01:00 01:15 01:30 Temperature Pulse Rate 61 58 59 Respiratory 14 19 20 Rate Blood Pressure 119/79 (mmHg) O2 Sat by Pulse 94 97 97 Oximetry 07/01/16 07/01/16 07/01/16 01:45 02:00 02:15 Temperature Pulse Rate 59 59 61 Respiratory 16 17 16 Rate Blood Pressure 105/69 (mmHg) O2 Sat by Pulse 97 97 99 Oximetry 07/01/16 07/01/16 07/01/16 02:30 02:45 03:00 Temperature Pulse Rate 59 60 60 Respiratory 18 17 13 Rate Blood Pressure 120/82 (mmHg) O2 Sat by Pulse 99 98 97 Oximetry 07/01/16 07/01/16 07/01/16 03:15 03:30 03:45 Temperature Pulse Rate 60 64 59 Respiratory 19 11 16 Rate Blood Pressure (mmHg) O2 Sat by Pulse 96 96 96 Oximetry 07/01/16 07/01/16 07/01/16 04:00 04:15 04:30 Temperature 99.2 F Pulse Rate 61 65 61 Respiratory 20 16 19 Rate Blood Pressure 113/67 (mmHg) O2 Sat by Pulse 96 97 96 Oximetry 07/01/16 07/01/16 07/01/16 04:45 05:00 05:15 Temperature Pulse Rate 62 60 59 Respiratory 13 18 18 Rate Blood Pressure 114/72 (mmHg) O2 Sat by Pulse 98 96 97 Oximetry 07/01/16 07/01/16 07/01/16 05:30 05:45 06:00 Temperature Pulse Rate 61 62 60 Respiratory 13 11 12 Rate Blood Pressure (mmHg) O2 Sat by Pulse 98 99 98 Oximetry 07/01/16 07/01/16 07/01/16 06:07 06:15 06:30 Temperature Pulse Rate 60 61 59 Respiratory 15 13 16 Rate Blood Pressure 125/87 (mmHg) O2 Sat by Pulse 98 98 97 Oximetry 07/01/16 07/01/16 07/01/16 06:45 07:00 07:15 Temperature Pulse Rate 61 59 59 Respiratory 15 16 17 Rate Blood Pressure 102/64 (mmHg) O2 Sat by Pulse 100 100 100 Oximetry 07/01/16 07/01/16 07/01/16 07:30 07:36 07:45 Temperature 97.9 F Pulse Rate 60 60 Respiratory 10 12 Rate Blood Pressure (mmHg) O2 Sat by Pulse 100 100 Oximetry 07/01/16 07/01/16 07/01/16 08:00 08:15 08:30 Temperature Pulse Rate 59 58 60 Respiratory 17 13 16 Rate Blood Pressure 117/79 (mmHg) O2 Sat by Pulse 100 100 99 Oximetry 07/01/16 07/01/16 07/01/16 08:45 09:00 09:15 Temperature Pulse Rate 63 61 68 Respiratory 11 12 19 Rate Blood Pressure 117/74 (mmHg) O2 Sat by Pulse 99 98 97 Oximetry 07/01/16 07/01/16 07/01/16 09:30 09:45 10:00 Temperature Pulse Rate 68 68 68 Respiratory 16 14 17 Rate Blood Pressure 87/69 (mmHg) O2 Sat by Pulse 98 97 97 Oximetry 07/01/16 07/01/16 07/01/16 10:12 10:15 10:30 Temperature Pulse Rate 70 69 66 Respiratory 17 16 15 Rate Blood Pressure 99/61 (mmHg) O2 Sat by Pulse 98 97 99 Oximetry 07/01/16 07/01/16 07/01/16 10:45 10:58 11:00 Temperature Pulse Rate 63 65 Respiratory 17 13 18 Rate Blood Pressure 101/74 (mmHg) O2 Sat by Pulse 100 100 Oximetry 07/01/16 07/01/16 07/01/16 11:15 11:28 11:29 Temperature 97.2 F Pulse Rate 65 Respiratory 17 18 Rate Blood Pressure (mmHg) O2 Sat by Pulse 99 Oximetry 07/01/16 07/01/16 07/01/16 11:30 11:45 12:00 Temperature Pulse Rate 65 65 65 Respiratory 12 17 13 Rate Blood Pressure 106/68 (mmHg) O2 Sat by Pulse 100 99 100 Oximetry 07/01/16 07/01/16 07/01/16 12:15 12:45 13:00 Temperature Pulse Rate 66 65 Respiratory 18 Rate Blood Pressure 102/77 (mmHg) O2 Sat by Pulse 100 99 Oximetry 07/01/16 07/01/16 07/01/16 13:15 13:30 13:56 Temperature Pulse Rate 66 68 Respiratory 18 Rate Blood Pressure (mmHg) O2 Sat by Pulse 100 100 Oximetry 07/01/16 07/01/16 07/01/16 14:00 14:15 14:30 Temperature Pulse Rate 70 73 72 Respiratory Rate Blood Pressure 110/75 (mmHg) O2 Sat by Pulse 100 98 99 Oximetry 07/01/16 07/01/16 07/01/16 14:45 15:00 15:15 Temperature Pulse Rate 73 73 Respiratory 18 Rate Blood Pressure 116/78 (mmHg) O2 Sat by Pulse 100 100 Oximetry 07/01/16 07/01/16 15:29 15:30 Temperature 98.8 F Pulse Rate 71 Respiratory Rate Blood Pressure (mmHg) O2 Sat by Pulse 100 Oximetry Oxygen Devices in Use Now: Nasal Cannula Appearance: obese, NAD Eyes: No Scleral Icterus, PERRLA, - - left exotropia Ears/Nose/Mouth/Throat: NL Teeth, Lips, Gums, Clear Oropharnyx, Mucous Membranes Moist Neck: NL Appearance and Movements; NL JVP, Trachea Midline Respiratory: Symmetrical Chest Expansion and Respiratory Effort, Clear to Auscultation Cardiovascular: NL Sounds; No Murmurs; No JVD, RRR Abdominal: NL Sounds; No Tenderness; No Distention, No Hepatosplenomegaly Lymphatic: No Cervical Adenopathy Extremities: No Edema Neurological: Alert and Oriented x 3 Result Diagrams: 07/01/16 05:50 07/01/16 05:50 Microbiology and Other Data: Microbiology 06/28/16 01:40 Nasal Screen MRSA (PCR)([facility]) - Final Nasal Mrsa Negative Assess/Plan/Problems-Billing Assessment: 66 yo F h/o DM2, CHF, afib on xarelto, COPD, and HTN presents with increasing lethargy after several days of diarrhea found with DKA with stay c/b SVT and bradycarida on AV julianna blockers - Patient Problems (1) DKA (diabetic ketoacidoses) Comment: Basal bolus insulin with sliding scale and carb counting Insulin lantus increased to 60unit 06/30/16 Added additional 10 units lantus evening 07/01 (total 70units/day dose) Hba1c indicates uncontrolled dm2. Will need insulin on d/c (2) Atrial fibrillation Comment: complicated by continued SVT and bradycardia while on AV julianna blockers. ?Sick sinus syndrome. Was previously on amiodarone. Placed Dr. Broussard's last note in chart. Unclear why this was discontinued. c/w atenolol Restart xarelto 25mg. heparin gtt stopped Metoprolol 5mg IV available for uncontrolled rate Appreciate cardiology consultation (3) Acute kidney failure Comment: In setting of volume depletion from DKA d/c limon Baseline per review from outpatient records - Cr 1.8 in 04/2016 (4) Hypertension Comment: Hold chlorthalidone c/w atenolol (5) COPD (chronic obstructive pulmonary disease) Comment: dulera and albuterol PRN (6) DVT prophylaxis Comment: hep SQ
[2016-07-01] MEDS ORDERED: NS 0.9% 1000 ML* 1,000 ML IV SCH (17:15)
[2016-07-01] MEDS ORDERED: Insulin GLARGINE(*) 1 UNITS UNIT SUBCUT SCH (21:00)
[2016-07-01] MEDS ORDERED: Sodium Phosphate ADULT ENEMA* 118 ml bottle PR ONE (22:00)
[2016-07-02] MEDS ORDERED: Metoprolol Tartrate IV* 1 MG/ML 5 ML VIAL IV ONE ×2 (02:00→04:00)
[2016-07-02 06:21] LABS: BUN/Creatinine Ratio 12.1 (8-20); Calcium 8.3 mg/dL (8.6-10.3); EGFR African American 38.1 (>60); EGFR Non-African American 29.7 (>60); Potassium 3.1 mmol/L (3.5-5.0)
[2016-07-02] MEDS ORDERED: Potassium Chlor TAB* 20 MEQ TAB.ER PO ONE (08:00)
[2016-07-02] MEDS: Insulin LISPRO* 1 UNITS UNIT SUBCUT SCH ×2 (08:59→13:10)
[2016-07-02] MEDS: Mometasone/Formoter 200/5 MDI INH SCH (09:08)
[2016-07-02] MEDS: Aspirin EC Low Dose* 81 MG TAB.EC PO SCH (09:42)
[2016-07-02] MEDS: Insulin GLARGINE(*) 1 UNITS UNIT SUBCUT SCH (09:44)
[2016-07-02] MEDS: Atenolol TAB* 25 MG PO SCH (09:44)
[2016-07-02 16:44] VITALS: BP 111/64
--- NOTE | 2016-07-03 08:28 | DS ---
DISCHARGE SUMMARY: DATE OF ADMISSION: 06/27/16 DATE OF DISCHARGE: 07/02/16 PRIMARY CARE PROVIDER: Toyin Baron MD. PHYS ASSISTANT: Dr. Amadeo Lopez at [facility]. PRIMARY DIAGNOSES: 1. Diabetic ketoacidosis. 2. Yutrf-bd-tganmpz kidney injury. 3. Supraventricular tachycardia. SECONDARY DIAGNOSES: Include: 1. Insulin dependent type 2 diabetes mellitus. 2. Compensated congestive heart failure. 3. Atrial fibrillation, on Xarelto. 4. Chronic obstructive pulmonary disease. 5. Hypertension. 6. Thrombocytopenia. MEDICATIONS ON DISCHARGE: Include: 1. Advair 250/50 one puff twice daily. 2. Albuterol HFA two puffs every 6 hours as needed for shortness of breath or wheeze. 3. Rivaroxaban 15 mg daily. 4. MiraLax 17 g daily as needed for constipation. 5. Aspirin 81 mg daily. 6. Insulin glargine 45 units twice daily, delivered via SoloSTAR device. 7. Atenolol 25 mg daily. PERTINENT LABORATORY DATA: Hemoglobin A1c is 15.6. Creatinine on presentation 4.43, at discharge 1.73. Arterial pH on presentation 7.17. Serum bicarbonate on presentation 11, improved to 21 on discharge. Platelets decreased to 79 during the course of hospital stay. HISTORY OF PRESENT ILLNESS AND HOSPITAL COURSE: This is a 66-year-old female with a past medical history as outlined in the history of present illness on the date of admission including type 2 diabetes, not on insulin, history of COPD and SVT, history of atrial fibrillation on Xarelto, who presented with increased weakness and lethargy, found in DKA. She was admitted to the ICU, treated with an insulin drip with an improvement of her acidosis as well as anion gap. She was transitioned to basal bolus insulin with Lantus and insulin lispro. Her Lantus was titrated up during the course of the hospital stay to an ultimate dose of 80 units daily. Hemoglobin A1c indicates uncontrolled type 2 diabetes for what has likely been some time. The chlorthalidone was discontinued and her atenolol was continued. Of note, she had periods of SVT. She did receive adenosine on several occasions as well as metoprolol IV. She was seen in consultation with Cardiology who noted her episodes of SVT to be very short, and she remained asymptomatic. They did not recommend any changes to her medication nor any additions of rhythm-controlling medications. She should be followed with Dr. Lopez on discharge, and a followup was made by this author. The patient's acute kidney injury resolved with fluids, likely representing a prerenal etiology in the setting of her DKA. Also notable, the patient's platelets declined during the course of her hospital stay, potentially in the setting of acute stress and DKA, in addition to large volume of fluids she received during the course of the hospital stay. She was at least 10 L net positive over the course of the hospital stay. She had no evidence of bleeding during the course of the hospital stay. Her rivaroxaban was reinstituted when her renal function permitted upon recovery. At followup, please: 1. Consider repeat CBC to trend thrombocytopenia to recovery. 2. Extensive insulin teaching was given to the patient during the course of the hospital stay in concordance with diet education. I believe the patient will need further diabetes education upon her discharge from the hospital stay. Please follow diabetes control as I'm sure you will. 3. Followup blood pressure off of several of her home medications. Unclear how compliant the patient was with medications prior to presenting to the hospital. 4. Referred back to the patient's reagent tender helper for further evaluation of SVT. If SVT remains a problem, can consider Holter monitor as an outpatient or institution of rhythm controlling medication. The patient is noted to have been on amiodarone in the past; unclear why this was discontinued. Outpatient records from Dr. Lopez were obtained and this was not immediately clear. Reasons to return to the hospital included but not limited to recurrent or worsening symptoms, chest pain, shortness of breath, nausea, vomiting, lightheadedness, loss of consciousness, near loss of consciousness, bleeding from any source, abdominal pain, inability to obtain or tolerate medications were discussed with the patient. She acknowledged understanding. Furthermore, the patient worked with physical therapy on the day of discharge, was able to step up and down on the stair over 28 times indicating she would be able to traverse 16 stairs into her home upon discharge, especially with the level of help she had from her family on the day of discharge. TIME SPENT: Greater than 60 minutes were spent on the discharge of the patient , greater than half was spent [id number] with the patient. CC: Toyin Baron MD; Dr. Amadeo Lopez, Real Estate Acquisition Analyst at [facility] * [id number]/[facility] #: [id number] ZION
== END 2016-07-02 17:15 | disposition home or self-care (01) | DRG 420 ==
LOC: ED 20:54 → ICU 23:09 → MEDTELE 07-01 21:49
PROVIDERS: ADMIT Internal Medicine; ATTEND Internal Medicine
DX: E13.10 Other specified diabetes mellitus with ketoacidosis without coma (principal); N17.9 Acute kidney failure, unspecified; D69.6 Thrombocytopenia, unspecified; I47.1 Supraventricular tachycardia; Z68.42 Body mass index [BMI] 45.0-49.9, adult; N18.3 Chronic kidney disease, stage 3 (moderate); I50.9 Heart failure, unspecified; I13.0 Hypertensive heart and chronic kidney disease with heart failure and stage 1 through stage 4 chronic kidney disease, or unspecified chronic kidney disease; E78.00 Pure hypercholesterolemia, unspecified; Z88.8 Allergy status to other drugs, medicaments and biological substances; E66.01 Morbid (severe) obesity due to excess calories; J45.909 Unspecified asthma, uncomplicated; Z98.51 Tubal ligation status; Z83.3 Family history of diabetes mellitus; Z82.3 Family history of stroke; Z80.9 Family history of malignant neoplasm, unspecified; E11.22 Type 2 diabetes mellitus with diabetic chronic kidney disease; F17.200 Nicotine dependence, unspecified, uncomplicated; I48.0 Paroxysmal atrial fibrillation; M85.80 Other specified disorders of bone density and structure, unspecified site; M19.90 Unspecified osteoarthritis, unspecified site; Z87.442 Personal history of urinary calculi; J44.9 Chronic obstructive pulmonary disease, unspecified; Z79.01 Long term (current) use of anticoagulants; Z79.4 Long term (current) use of insulin; Z79.82 Long term (current) use of aspirin
CPT/HCPCS: 36415; 36600; 71020; 80048; 80051; 80053; 81003; 81015; 82803; 82947; 83036; 83605; 83735; 84443; 85014; 85018; 85025; 85060; 85730; 86140; 87086; 87641; 93005; 94640; 94760; A9270-GY; J0153; J1644; J1815; J3480; J3490

== ENCOUNTER 2016-08-17 18:47 | Emergency (ER) | payer MEDICAID ==
[2016-08-17 19:35] LABS: Hematocrit 36 % (35-47); Hemoglobin 11.5 g/dl (12.0-16.0); Mean Corpuscular HGB Conc 32 g/dl (31-36); Mean Corpuscular Hemoglobin 30 pg (27-31); Mean Corpuscular Volume 93 fL (80-97); Mean Platelet Volume 9 um3 (7.4-10.4); Red Blood Count 3.85 10^6/ul (4.0-5.4); Red Cell Distribution Width 15 % (10.5-15); White Blood Count 5.7 10^3/ul (3.5-10.8)
[2016-08-17 19:52] LABS: Albumin 3.8 g/dL (3.2-5.2); BUN/Creatinine Ratio 20.2 (8-20); Calcium 9.5 mg/dL (8.6-10.3); EGFR African American 33.6 (>60); EGFR Non-African American 26.1 (>60); Magnesium 2.1 mg/dL (1.9-2.7); Potassium 3.8 mmol/L (3.5-5.0); Total Bilirubin 0.3 mg/dL (0.2-1.0); Total Protein 7.8 g/dL (6.4-8.9)
--- NOTE | 2016-08-17 19:57 | RAD ---
HISTORY: Chest pain COMPARISONS: June 30, 2016 VIEWS: 2: Frontal dual-energy and lateral views of the chest. FINDINGS: CARDIOMEDIASTINAL SILHOUETTE: The cardiomediastinal silhouette is normal. NANETTE: The nanette are normal. PLEURA: The costophrenic angles are sharp. No pleural abnormalities are noted. LUNG PARENCHYMA: The lungs are clear. ABDOMEN: The upper abdomen is clear. There is no subphrenic gas. BONES AND SOFT TISSUES: Degenerative changes are noted OTHER: None. IMPRESSION: NO ACTIVE CARDIOPULMONARY DISEASE.
--- NOTE | 2016-08-17 20:25 | ED ---
Isak Wei Michael, scribed for Abdi Katz MD on 08/17/16 at 1926 . Neurological HPI - HPI Summary HPI Summary: 66 y/o female was BIBA to the ED presenting with dizziness and weakness that started suddenly this evening. The pt reports that she stood up from a seated position, and she felt the dizziness onset and had a witnessed fall. She notes remember experiencing the dizziness and waking up on the floor. Her son states that the pt had no symptoms before the fall, and she denied palpitations. When EMS arrived to the seen the pt had a heart rate over 100 and blood glucose of 129. The PMHx is significant for palpitations described as rapid heart beat, DM , and COPD. - History of Current Complaint Chief Complaint: EDDysrhythmPalp Stated Complaint: RAPID HEART RATE Hx Obtained From: Patient, Family/Tie Presser, EMS, Medical Records Onset/Duration: Sudden Onset Timing: Sudden Onset Onset Severity: Moderate Current Severity: Mild Character: Dizzy, Motor Weakness Aggravating: Unknown Alleviating: Spontanious Resolution Associated Signs and Symptoms: Positive: Weakness, Dizziness. Negative: Palpitations - Additional Pertinent History Primary Care Physician: [id number] - Allergy/Home Medications Allergies/Adverse Reactions: Allergies Allergy/AdvReac Type Severity Reaction Status Date / Time BLAYNE Inhibitors Allergy Severe Swelling Verified 06/27/16 22:47 Of Face,Lips,& Throat PMH/Surg Hx/FS Hx/Imm Hx Endocrine/Hematology History: Reports: Hx Diabetes Cardiovascular History: Reports: Hx Hypercholesterolemia, Hx Hypertension, Other Cardiovascular Problems/Disorders - Admission in 2013 for SVT Respiratory History: Reports: Hx Asthma, Hx Chronic Obstructive Pulmonary Disease (COPD), Other Respiratory Problems/Disorders - COPD Sensory History: Denies: Hx Contacts or Glasses Opthamlomology History: Denies: Hx Contacts or Glasses - Surgical History Surgery Procedure, Year, and Place: ovarian mass excision Infectious Disease History: Denies: Traveled Outside the [place] in Last 30 Days - Family History Known Family History: Positive: Diabetes - Social History Occupation: Unemployed, Retired Lives: With Family Alcohol Use: None Alcohol Amount: 1 glass per night Substance Use Type: Reports: None Smoking Status (MU): Never Smoked Tobacco Review of Systems Negative: Fever Negative: Palpitations Neurological: Other - dizziness Positive: Weakness All Other Systems Reviewed And Are Negative: Yes Physical Exam Triage Information Reviewed: Yes Vital Signs On Initial Exam: Initial Vitals Temp Pulse Resp BP Pulse Ox 98.8 F 96 16 126/93 100 08/17/16 18:55 08/17/16 18:55 08/17/16 18:55 08/17/16 18:55 08/17/16 18:55 Vital Signs Reviewed: Yes Appearance: Positive: No Pain Distress, Obese Skin: Positive: Warm Head/Face: Positive: Normal Head/Face Inspection Eyes: Positive: OSIRIS ENT: Positive: Hearing grossly normal Neck: Positive: Supple Respiratory/Lung Sounds: Positive: Clear to Auscultation, Breath Sounds Present Cardiovascular: Positive: RRR Abdomen Description: Positive: Nontender, Soft Bowel Sounds: Positive: Present Musculoskeletal: Positive: Strength/ROM Intact Neurological: Positive: Sensory/Motor Intact, Alert, Oriented to Person Place, Time Psychiatric: Positive: Affect/Mood Appropriate - [place] Coma Scale Coma Scale Total: 15 Diagnostics - Vital Signs Vital Signs Temp Pulse Resp BP Pulse Ox 08/17/16 18:58 92 08/17/16 18:55 98.8 F 96 16 126/93 100 - Laboratory Lab Results: Lab Results 08/17/16 08/17/16 08/17/16 Range/Units 19:28 19:28 19:28 WBC 5.7 (3.5-10.8) 10^3/ul RBC 3.85 L (4.0-5.4) 10^6/ul Hgb 11.5 L (12.0-16.0) g/dl Hct 36 (35-47) % MCV 93 (80-97) fL MCH 30 (27-31) pg MCHC 32 (31-36) g/dl RDW 15 (10.5-15) % Plt Count 211 (150-450) 10^3/ul MPV 9 (7.4-10.4) um3 Neut % (Auto) 61.3 (38-83) % Lymph % (Auto) 26.1 (25-47) % [place] % (Auto) 7.3 (1-9) % Eos % (Auto) 4.4 (0-6) % Baso % (Auto) 0.9 (0-2) % Absolute Neuts (auto) 3.5 (1.5-7.7) 10^3/ul Absolute Lymphs (auto) 1.5 (1.0-4.8) 10^3/ul Absolute Monos (auto) 0.4 (0-0.8) 10^3/ul Absolute Eos (auto) 0.2 (0-0.6) 10^3/ul Absolute Basos (auto) 0.1 (0-0.2) 10^3/ul Absolute Nucleated RBC 0 10^3/ul Nucleated RBC % 0 INR (Anticoag Therapy) 1.41 H (0.89-1.11) Sodium 138 (133-145) mmol/L Potassium 3.8 (3.5-5.0) mmol/L Chloride 104 (101-111) mmol/L Carbon Dioxide 25 (22-32) mmol/L Anion Gap 9 (2-11) mmol/L BUN 39 H (6-24) mg/dL Creatinine 1.93 H (0.51-0.95) mg/dL Est GFR ( Amer) 33.6 (>60) Est GFR (Non-Af Amer) 26.1 (>60) BUN/Creatinine Ratio 20.2 H (8-20) Glucose 149 H (70-100) mg/dL Lactic Acid (0.5-2.0) mmol/L Calcium 9.5 (8.6-10.3) mg/dL Magnesium 2.1 (1.9-2.7) mg/dL Total Bilirubin 0.30 (0.2-1.0) mg/dL AST 12 L (13-39) U/L ALT 8 (7-52) U/L Alkaline Phosphatase 51 (34-104) U/L Troponin I 0.00 (<0.04) ng/mL Total Protein 7.8 (6.4-8.9) g/dL Albumin 3.8 (3.2-5.2) g/dL Globulin 4.0 (2-4) g/dL Albumin/Globulin Ratio 1.0 (1-3) TSH Pending 08/17/16 Range/Units 19:28 WBC (3.5-10.8) 10^3/ul RBC (4.0-5.4) 10^6/ul Hgb (12.0-16.0) g/dl Hct (35-47) % MCV (80-97) fL MCH (27-31) pg MCHC (31-36) g/dl RDW (10.5-15) % Plt Count (150-450) 10^3/ul MPV (7.4-10.4) um3 Neut % (Auto) (38-83) % Lymph % (Auto) (25-47) % [place] % (Auto) (1-9) % Eos % (Auto) (0-6) % Baso % (Auto) (0-2) % Absolute Neuts (auto) (1.5-7.7) 10^3/ul Absolute Lymphs (auto) (1.0-4.8) 10^3/ul Absolute Monos (auto) (0-0.8) 10^3/ul Absolute Eos (auto) (0-0.6) 10^3/ul Absolute Basos (auto) (0-0.2) 10^3/ul Absolute Nucleated RBC 10^3/ul Nucleated RBC % INR (Anticoag Therapy) (0.89-1.11) Sodium (133-145) mmol/L Potassium (3.5-5.0) mmol/L Chloride (101-111) mmol/L Carbon Dioxide (22-32) mmol/L Anion Gap (2-11) mmol/L BUN (6-24) mg/dL Creatinine (0.51-0.95) mg/dL Est GFR ( Amer) (>60) Est GFR (Non-Af Amer) (>60) BUN/Creatinine Ratio (8-20) Glucose (70-100) mg/dL Lactic Acid 2.1 H* (0.5-2.0) mmol/L Calcium (8.6-10.3) mg/dL Magnesium (1.9-2.7) mg/dL Total Bilirubin (0.2-1.0) mg/dL AST (13-39) U/L ALT (7-52) U/L Alkaline Phosphatase (34-104) U/L Troponin I (<0.04) ng/mL Total Protein (6.4-8.9) g/dL Albumin (3.2-5.2) g/dL Globulin (2-4) g/dL Albumin/Globulin Ratio (1-3) TSH Result Diagrams: 08/17/16 19:28 08/17/16 19:28 Lab Statement: Any lab studies that have been ordered have been reviewed, and results considered in the medical decision making process. - Radiology CXR Xray Interpretation: No Acute Changes Radiology Interpretation Completed By: Radiologist - EKG EK EKG Rhythm: Sinus Rhythm - 91 bpm Re-Evaluation - Re-Evaluation First Eval Change: Improved - pt remains in nsr, hx svt trop neg, will d/c to f/u with pcp /cardio Course/Dx - Diagnoses Provider Diagnoses: Palpitations Discharge - Discharge Plan Condition: Improved Disposition: HOME Patient Education Materials: Palpitations (ED) Referrals: Rasheed Cueto MD [Medical Doctor] - Toyin Baron MD [Primary Care Provider] - Additional Instructions: Please follow up with Dr. Cueto (Cardiology) within the next 2 days. Please return to the ED if your symptoms worsen. The documentation as recorded by the Isak arias Michael accurately reflects the service I personally performed and the decisions made by me, Abdi Katz MD.
[2016-08-17 20:35] LABS: TSH (Thyroid Stimulating Horm) 2.06 mcIU/mL (0.34-5.60)
[2016-08-18 00:30] VITALS: BP 113/87
== END 2016-08-18 00:31 | disposition home or self-care (01) ==
LOC: ED 18:47
DX: R00.2 Palpitations (principal); R53.1 Weakness; R42 Dizziness and giddiness
CPT/HCPCS: 36415; 71020; 80053; 83605; 83735; 84443; 84484; 85025; 85610; 93005; 99283

== ENCOUNTER 2023-05-30 01:35 | Inpatient (IN) ==
[2023-05-30] MEDS: Albuterol (2.5 MG) 0.5 % CONC 0.5 ML NEB.SOLN INH SCH (02:27)
[2023-05-30] MEDS: Dexamethasone IV 4 MG/ML VIAL 1 ml VIAL IV SLOW PU ONE (02:42)
[2023-05-30 02:54] LABS: ALT 6 U/L (7-52); Albumin 4.2 g/dL (3.2-5.2); Albumin/Globulin Ratio 1.2 (1-3); Alkaline Phosphatase 58 U/L (35-149); Anion Gap 10 mmol/L (2-16); Blood Urea Nitrogen 46 mg/dL (6-24); C Reactive Protein 39.11 mg/L (<8.01); CO2 Carbon Dioxide 20 mmol/L (22-32); Calcium 8.5 mg/dL (8.6-10.3); Chloride 107 mmol/L (101-111); Creatinine, Serum 5.76 mg/dL (0.51-0.95); Globulin 3.5 g/dL (2-4); Glucose 166 mg/dL (70-100); Sodium 137 mmol/L (135-145); Total Bilirubin 0.7 mg/dL (0.2-1.0); Total Protein 7.7 g/dL (6.4-8.9); eGFR CKD-EPI 7.4 (>60)
[2023-05-30 02:54] LABS: ABS Eosinophils 0.1 10^3/uL (0.0-0.5); ABS Lymphocytes 0.4 10^3/uL (1.0-4.8); ABS Monocytes 0.5 10^3/uL (0.0-0.9); ABS Neutrophils 8.7 10^3/uL (1.5-7.6); ABS Nucleated RBC 0.01 10^3/ul; Eosinophil % 0.8 %; Hematocrit 26.7 % (35-45); Hemoglobin 8.9 g/dL (11.5-14.3); Lymphocyte % 3.8 %; Mean Corpuscular Hemoglobin 31.7 pg (27-33); Mean Corpuscular Hgb Conc 33.4 g/dL (31-36); Mean Corpuscular Volume 94.9 fL (80-97); Mean Platelet Volume 8.2 fL (7.5-11.2); Nucleated Red Blood Cells % 0.1 %/100WBC (0.0-0.8); Platelet Count 127 10^3/uL (150-450); Red Blood Count 2.82 10^6/uL (3.63-4.92); Red Cell Distribution Width 16.3 % (12-17); White Blood Count 9.6 10^3/uL (3.8-11.8)
[2023-05-30 02:58] LABS: High Sens Troponin Baseline 5 pg/mL (<15)
[2023-05-30 03:42] LABS: High Sensitivity Troponin 1 Hr 6 pg/mL (<15)
[2023-05-30] MEDS ORDERED: Vancomycin 1,000 MG in NS 0.9% 250 ml 250 ML IVPB ONE (04:41)
[2023-05-30] MEDS ORDERED: Vancomycin per Pharmacy 1 EA NOTE FOLLOW UP SCH (05:00)
[2023-05-30] MEDS: Azithromycin 500 mg/250 ml NS 500 MG/250 ML BAG IVPB SCH (05:34)
[2023-05-30 05:38] LABS: Potassium Redraw 4.2 mmol/L (3.5-5.0)
[2023-05-30 06:01] LABS: ABS Lymphocytes 0.2 10^3/uL (1.0-4.8); ABS Monocytes 0.5 10^3/uL (0.0-0.9); ABS Neutrophils 11.2 10^3/uL (1.5-7.6); Eosinophil % 0.1 %; Hemoglobin 8.9 g/dL (11.5-14.3); Lymphocyte % 1.9 %; Mean Corpuscular Hemoglobin 31.5 pg (27-33); Mean Corpuscular Hgb Conc 32.8 g/dL (31-36); Mean Corpuscular Volume 95.9 fL (80-97); Mean Platelet Volume 8.3 fL (7.5-11.2); Platelet Count 119 10^3/uL (150-450); Red Blood Count 2.81 10^6/uL (3.63-4.92); Red Cell Distribution Width 15.7 % (12-17)
[2023-05-30 06:29] LABS: Calcium 8.4 mg/dL (8.6-10.3); Creatinine, Serum 5.85 mg/dL (0.51-0.95); Potassium 4.1 mmol/L (3.5-5.0); eGFR CKD-EPI 7.2 (>60)
[2023-05-30] MEDS ORDERED: Dextrose 50% Syringe 50 ml 25 GM/50 ML SYRINGE IV PUSH PRN (06:37)
[2023-05-30] MEDS: Vancomycin 1,750 MG in NS 0.9% 500 ml BAG 500 ML IVPB ONE (06:42)
[2023-05-30] MEDS: Furosemide 40 mg/4 ml IV VIAL IV SLOW PU SCH (06:42)
[2023-05-30 06:59] LABS: TSH Ultra Thyroid Stim Horm 1.31 mcIU/mL (0.34-5.60)
[2023-05-30] MEDS: Insulin GLARGINE 100 un/ml 10 ml VIAL SUBCUT SCH (09:25)
[2023-05-30] MEDS: Heparin 5000 UNITS/ML 1 mL VIAL SUBCUT SCH (09:26)
[2023-05-30] MEDS: cefTRIAXone 1 gm/50 mL D5W 1 GM/50 ML BAG IV SCH (09:27)
[2023-05-30 09:45] LABS: PCO2 Arterial 44 mmHg (35-45); PO2 Arterial 66 mmHg (80-100)
[2023-05-30] MEDS ORDERED: Albumin Human 25% 25 GM/100 ML BTL IV PRN (10:09)
[2023-05-30] MEDS ORDERED: NS 0.9% 1000 ml BAG 200 ML IV PRN (10:09)
[2023-05-30] MEDS ORDERED: NS 0.9% 1000 ml BAG 100 ML IV PRN (10:09)
[2023-05-30] MEDS: Mometasone/Formoter 100/5 MDI INH SCH (10:56)
[2023-05-30] MEDS ORDERED: Zosyn per Pharmacy NOTE FOLLOW UP SCH (11:00)
[2023-05-30] MEDS: Furosemide 40 mg/4 ml IV VIAL IV ONE (11:50)
[2023-05-30] MEDS: Cefepime 1 GM in Dextrose 1 GM/50 ML BAG IV SCH (12:52)
[2023-05-30 13:41] LABS: Urine Appearance Cloudy; Urine Bilirubin Negative (Negative); Urine Blood 1+ (Negative); Urine Color Yellow; Urine Glucose Negative (Negative); Urine Ketones Negative (Negative); Urine Nitrite Negative (Negative); Urine Protein 2+(100 mg/dL) (Negative); Urine Specific Gravity 1.008 (1.002-1.030); Urine Urobilinogen Negative (Negative)
[2023-05-30 13:57] LABS: Urine Bacteria 1+ (Absent); Urine Red Blood Cell Trace(0-2/hpf) (Absent); Urine Squamous Epithelial Cell Present (Absent); Urine White Blood Cell Trace(0-5/hpf) (Absent)
[2023-05-30 17:47] LABS: Hepatitis B Surface Antigen Nonreactive (Nonreactive)
[2023-05-30 18:05] LABS: Hepatitis B Surface Ab Immune (Immune)
[2023-05-31] MEDS ORDERED: Vancomycin Random Level NOTE FOLLOW UP ONE (06:00)
[2023-05-31 06:38] LABS: ABS Eosinophils 0.1 10^3/uL (0.0-0.5); ABS Lymphocytes 0.8 10^3/uL (1.0-4.8); ABS Monocytes 0.6 10^3/uL (0.0-0.9); ABS Neutrophils 10.3 10^3/uL (1.5-7.6); ABS Nucleated RBC 0.01 10^3/ul; Eosinophil % 0.6 %; Hematocrit 23.4 % (35-45); Hemoglobin 7.6 g/dL (11.5-14.3); Lymphocyte % 6.7 %; Mean Corpuscular Hemoglobin 31.1 pg (27-33); Mean Corpuscular Hgb Conc 32.5 g/dL (31-36); Mean Corpuscular Volume 95.6 fL (80-97); Mean Platelet Volume 9.1 fL (7.5-11.2); Nucleated Red Blood Cells % 0.1 %/100WBC (0.0-0.8); Platelet Count 103 10^3/uL (150-450); Red Blood Count 2.45 10^6/uL (3.63-4.92); Red Cell Distribution Width 16.3 % (12-17); White Blood Count 11.8 10^3/uL (3.8-11.8)
[2023-05-31 06:55] LABS: Vancomycin Random 11.5 mcg/mL
[2023-05-31 07:35] LABS: Calcium 8.2 mg/dL (8.6-10.3); Creatinine, Serum 6.52 mg/dL (0.51-0.95); Magnesium 2.1 mg/dL (1.9-2.7); Potassium 4.5 mmol/L (3.5-5.0); eGFR CKD-EPI 6.3 (>60)
[2023-05-31] MEDS: Heparin 1,000 UNIT/ML 10 ml (10,000 UNITS) CATHLAB/DIALYSIS DIALYSIS PRN (08:23)
[2023-05-31] MEDS ORDERED: guaiFENesin 100 mg/5 ml LIQ unit dose cup PO PRN (14:25)
[2023-06-01] MEDS: cefTRIAXone 2 gm/50 mL D5W 2 GM/50 ML BAG IV SCH (08:36)
[2023-06-02 12:31] LABS: ABS Eosinophils 0.2 10^3/uL (0.0-0.5); ABS Lymphocytes 0.6 10^3/uL (1.0-4.8); ABS Monocytes 0.6 10^3/uL (0.0-0.9); ABS Neutrophils 5.3 10^3/uL (1.5-7.6); ABS Nucleated RBC 0.01 10^3/ul; Eosinophil % 2.7 %; Hematocrit 22.7 % (35-45); Hemoglobin 7.6 g/dL (11.5-14.3); Lymphocyte % 8.6 %; Mean Corpuscular Hemoglobin 31.4 pg (27-33); Mean Corpuscular Hgb Conc 33.6 g/dL (31-36); Mean Corpuscular Volume 93.6 fL (80-97); Mean Platelet Volume 8.6 fL (7.5-11.2); Nucleated Red Blood Cells % 0.1 %/100WBC (0.0-0.8); Platelet Count 139 10^3/uL (150-450); Red Blood Count 2.43 10^6/uL (3.63-4.92); Red Cell Distribution Width 15.9 % (12-17); White Blood Count 6.6 10^3/uL (3.8-11.8)
[2023-06-02 12:47] LABS: Creatinine, Serum 5.61 mg/dL (0.51-0.95); Potassium 3.4 mmol/L (3.5-5.0); eGFR CKD-EPI 7.6 (>60)
[2023-06-03 08:50] LABS: Calcium 8.3 mg/dL (8.6-10.3); Creatinine, Serum 4.21 mg/dL (0.51-0.95); Potassium 3.5 mmol/L (3.5-5.0); eGFR CKD-EPI 10.7 (>60)
[2023-06-03 09:51] VITALS: BP 134/67
== END 2023-06-03 14:20 | disposition home or self-care (01) | DRG 193 ==
LOC: ED 01:35 → EDHOLD 04:39 → SUATTDRO 04:39 → MEDTELE 15:22
PROVIDERS: ADMIT Internal Medicine; ATTEND Internal Medicine